=== PATIENT | male | born 1980 | race Caucasian/White ===

== ENCOUNTER 2017-12-12 15:08 | Emergency (ER) | payer BC ==
[~2017-12-12] VITALS: Ht 172.7 cm; Wt 111.1 kg
[2017-12-12 15:17] VITALS: BP_SYST 139
[2017-12-12] MEDS ORDERED: LIDOCAINE VISCOUS 2%, 15 ML UDC MM ONE (18:45)
[2017-12-12 19:22] VITALS: BP_SYST 132
== END 2017-12-12 19:22 | disposition home or self-care (01) ==
LOC: SED 15:08
DX: J02.9 Acute pharyngitis, unspecified (principal); R03.0 Elevated blood-pressure reading, without diagnosis of hypertension; Z90.49 Acquired absence of other specified parts of digestive tract; Z87.442 Personal history of urinary calculi
CPT/HCPCS: 36415; 86403; 87081; 99284; J2001